=== PATIENT | female | born 1940 | race Caucasian/White ===

== ENCOUNTER 2017-04-02 19:31 | Emergency (ER) | payer MEDICARE, OTHER ==
[2017-04-02 20:51] VITALS: BP 184/89
--- NOTE | 2017-04-02 21:04 | EDM.PDOC ---
ED HPI GENERAL MEDICAL PROBLEM - General Chief Complaint: General Stated Complaint: ELEVATED BLOOD PRESSURE Time Seen by Provider: 04/02/17 20:30 Source of Information: Reports: Patient History Limitations: Reports: No Limitations - History of Present Illness INITIAL COMMENTS - FREE TEXT/NARRATIVE: 76-year-old female usually very healthy who has chronic essential hypertension and in the clinic a few days ago with a nosebleed and was found to be hypertensive. She was told to follow her blood pressure and then recheck with her primary provider next week but today she checked it in the top number was still over 200 so she came in. She feels fine. She is under a lot of stress. She has no shortness of breath or chest pain. No significant headaches. Onset: Unknown/Unsure - Related Data Allergies Allergy/AdvReac Type Severity Reaction Status Date / Time fish oil Allergy Severe Anaphylactic Verified 04/02/17 20:07 Shock shellfish derived Allergy Severe Anaphylactic Verified 04/02/17 20:07 Shock povidone-iodine Allergy Rash Verified 04/02/17 20:07 [From Betadine] soap [From Betadine] Allergy Rash Verified 04/02/17 20:07 Sulfa (Sulfonamide Allergy Rash Verified 04/02/17 20:07 Antibiotics) Home Meds: Home Meds Hydrochlorothiazide 25 mg PO DAILY 12/11/12 [History] Losartan [Cozaar] 100 mg PO DAILY 12/11/12 [History] Montelukast [Singulair] 10 mg PO DAILY 12/11/12 [History] Simvastatin [Zocor] 20 mg PO BEDTIME 12/11/12 [History] Potassium Chloride 20 meq PO DAILY 01/22/14 [History] Aspirin [Adult Low Dose Aspirin EC] 81 mg PO DAILY 08/28/14 [History] EPINEPHrine [Epinephrine] 0.3 ml IM ASDIRECTED PRN 08/28/14 [History] Albuterol Sulfate [Proair Hfa] 1 - 2 puff INH ASDIRECTED PRN 12/07/15 [History] Brimonidine [Alphagan P 0.15% Ophth Soln] 1 drop EYEBOTH BID 01/05/16 [History] Past Medical History HEENT History: Reports: Cataract, Hard of Hearing, Impaired Vision Cardiovascular History: Reports: High Cholesterol, Hypertension Respiratory History: Reports: Asthma Gastrointestinal History: Reports: Colon Polyp 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 Psychiatric History: Reports: Depression - Infectious Disease History Infectious Disease History: Reports: Chicken Pox - Past Surgical History HEENT Surgical History: Reports: Cataract Surgery Respiratory Surgical History: Reports: None Female Surgical History: Reports: None Neurological Surgical History: Reports: Spinal Fusion, Other (See Below) Musculoskeletal Surgical History: Reports: Knee Replacement, Shoulder Surgery Social & Family History - Family History Family Medical History: Noncontributory - Tobacco Use Smoking Status *Q: Never Smoker Second Hand Smoke Exposure: No - Caffeine Use Caffeine Use: Reports: Tea - Alcohol Use Days Per Week of Alcohol Use: 0 - Recreational Drug Use Recreational Drug Use: No ED ROS GENERAL - Review of Systems Review Of Systems: See Below Constitutional: Denies: Fever Respiratory: Denies: Shortness of Breath Cardiovascular: Denies: Chest Pain Neurological: Reports: Dizziness (Mild intermittent dizziness, chronic) ED EXAM, GENERAL - Physical Exam Exam: See Below Exam Limited By: No Limitations General Appearance: Alert, No Apparent Distress Respiratory/Chest: No Respiratory Distress, Lungs Clear Cardiovascular: Regular Rate, Rhythm Extremities: Normal Inspection. No: Pedal Edema Neurological: Alert, Oriented Course - Vital Signs Last Recorded V/S: Last Vital Signs Temp 97.3 F 04/02/17 20:50 Pulse 84 04/02/17 20:50 Resp 14 04/02/17 20:50 BP 184/89 H 04/02/17 20:50 Pulse Ox 98 04/02/17 20:50 - Re-Assessments/Exams Free Text/Narrative Re-Assessment/Exam: 04/02/17 21:01 Initial blood pressure was 189/100, recheck after a half hour was 179/89. She is on 100 mg of losartan daily, I did not feel comfortable increasing that and I think she is stable enough to talk to Dr. Phillips next week about whether another medication is needed. She can return sooner if she develops symptoms such as shortness of breath or chest pain. I strongly reinforced avoiding extra sodium. Departure - Departure Time of Disposition: 21:31 Disposition: Home, Self-Care 01 Condition: Good Clinical Impression: Hypertension Qualifiers: Hypertension type: essential hypertension Qualified Code(s): I10 - Essential ( primary) hypertension - Discharge Information Instructions: Hypertension, [id number] Referrals: Ian Phillips MD [Primary Care Provider] - Forms: ED Department Discharge Care Plan Goals: Avoid any extra salt and continue your regular medications. Call the clinic tomorrow to make an appointment with Dr. Phillips to discuss whether more indication is needed. Return anytime if worsening such as chest pain or shortness of breath.
== END 2017-04-02 21:31 | disposition home or self-care (01) ==
LOC: JP.ED 19:31
DX: I10 Essential (primary) hypertension (principal); Z88.8 Allergy status to other drugs, medicaments and biological substances; Z88.2 Allergy status to sulfonamides; Z91.013 Allergy to seafood; Z79.899 Other long term (current) drug therapy; E78.00 Pure hypercholesterolemia, unspecified; Z79.82 Long term (current) use of aspirin
CPT/HCPCS: 99283

== ENCOUNTER 2018-12-31 05:53 | Day surgery (SDC) | payer MEDICARE, OTHER ==
[2018-12-31] MEDS ORDERED: Lactated Ringers 1,000 ML IV SCH (06:30)
[2018-12-31] MEDS ORDERED: ceFAZolin 2 GM in Premix Bag 1 BAG IV ONE (06:30)
[2018-12-31] MEDS ORDERED: Nozin Nasal Sanitizer NASBOTH ONE (06:30)
[2018-12-31] MEDS ORDERED: Bupivacaine 0.5% 50 ML MDV ONE (07:03)
[2018-12-31] MEDS ORDERED: fentaNYL 100 MCG/2 ML SDV ONE (07:26)
[2018-12-31] MEDS ORDERED: Midazolam 1 MG/ML 2 ML SDV ONE (07:26)
[2018-12-31] MEDS ORDERED: Propofol 200 MG/20 ML SDV ONE ×2 (07:26→08:53)
[2018-12-31] MEDS ORDERED: Bupivacaine 0.5% 30 ML SDV ONE (07:28)
[2018-12-31] MEDS ORDERED: Acetaminophen/HYDROcodone 325-5 MG Tab PO ONE (10:44)
[2018-12-31 12:30] VITALS: BP 133/64; PULSE 67
--- NOTE | 2019-01-04 15:23 | OR ---
DATE OF PROCEDURE: 12/31/2018 SURGEON: Renan Ruano MD PREOPERATIVE DIAGNOSIS: Large retracted rotator cuff tear, right shoulder. POSTOPERATIVE DIAGNOSES: 1. Large retracted rotator cuff tear, right shoulder. 2. Degenerative superior labral tear. 3. Impingement of right shoulder. PROCEDURE: Arthroscopy of right shoulder with debridement of labrum, subacromial decompression, and arthroscopic rotator cuff repair. ANESTHESIA: Interscalene block with sedation. INDICATIONS: Lora is a very pleasant 78-year-old female with a history of pain and weakness in her right shoulder. Examination and MRI imaging consistent with a large retracted tear of the rotator cuff. She now presents for arthroscopy, decompression, and attempted rotator cuff repair. Risks, benefits, potential complications of the procedure were discussed. DESCRIPTION OF PROCEDURE: After adequate anesthesia was obtained, the patient was placed in a lateral decubitus position and secured with the beanbag positioner. The right shoulder and arm were then prepped and draped in a sterile fashion and 10 pounds of traction was placed in the shoulder traction unit. A standard posterior portal was established. Glenohumeral joint was inspected. This revealed no significant arthritic change of the humeral head or glenoid articular cartilage. Fraying of the superior labrum was present at the attachment of the biceps tendon. Biceps tendinopathy is noted. Tendinopathy, interstitial tearing of the subscapularis was noted but was intact. Full-thickness tear of the rotator cuff ws noted. Anterior portals established. Shaver was introduced and the superior labrum was mildly debrided. Scope then withdrawn and placed in the subacromial space. Significant impingement was present with fraying of the coracoacromial ligament. Retracted tear of the cuff was noted with retraction of approximately a centimeter and a half. A lateral portal was established. The bursa was resected for better visualization and the undersurface of the acromion was cleared of soft tissue with the radiofrequency ablation wand. The coracoacromial ligament was released. Acromioplasty was then performed using a annalise removing the undersurface of the anterolateral aspect of the acromion and bevelling this posteriorly removing just over 4 mm. The rotator cuff was then assessed. Reasonable tendon integrity was still present. The cuff was initially somewhat tight and could only be mobilized approximately 0.5 cm. An elevator was then used to release the cuff allowing mobilization out to the footprint without significant tension. The edge of the tendon was debrided with the shaver and the superior surface of the tuberosity was then lightly decorticated with a bur. Two Mitek Healix anchors were placed in the footprint. Beginning posteriorly, both limbs of one of the suture sets was placed through the cuff tendon using the Mitek Expressew device. This was then repeated for the second set of sutures. One set of the anterior anchor pair of sutures was then placed through the tendon in a mattress fashion. This left just a small area at the very anterior aspect of the tear and the last suture set was divided with one of the limbs passed through the tendon in order to tie this down in a simple repair fashion. Beginning with the anterior sutures, these were then tied down in standard arthroscopic fashion. The most anterior pair was cut. After tying the remaining 3 pairs, the cuff showed very good position over the tuberosity. The remaining anterior set and one of the posterior set of sutures was then selected for a knotless anchor for a suture bridge. The remaining set from the posterior anchor were cut. The socket was created just off the lateral edge of the acromion with an awl. All 4 limbs of the remaining sutures were passed through the knotless anchor. This was then secured into the bone with very good purchase and good tension on the sutures. This resulted in a secure cuff repair with the suture bridge double row technique. Repair and acromioplasty were then evaluated from the lateral portal. No complications were noted. Scope was withdrawn. Shoulder was drained and the port sites were closed in a standard fashion. Steri-Strips were applied. Sterile dressing was then placed. Patient was taken from the operating room in a stable condition. There were no complications. Renan Ruano MD /[id number]
== END 2018-12-31 12:43 | disposition home or self-care (01) ==
LOC: JP.SDS 05:53
PROVIDERS: ATTEND Specialist
DX: M75.121 Complete rotator cuff tear or rupture of right shoulder, not specified as traumatic (principal); S43.431A Superior glenoid labrum lesion of right shoulder, initial encounter; M25.811 Other specified joint disorders, right shoulder; E78.5 Hyperlipidemia, unspecified; I10 Essential (primary) hypertension; J45.30 Mild persistent asthma, uncomplicated; Z91.013 Allergy to seafood; Z88.2 Allergy status to sulfonamides; Z79.899 Other long term (current) drug therapy; Z79.82 Long term (current) use of aspirin; Z88.8 Allergy status to other drugs, medicaments and biological substances
CPT/HCPCS: 29822; 29826; 29827; A9270; C1713; J0690; J2250; J2704; J3010; J3490; J7120

== ENCOUNTER 2019-10-10 18:25 | Emergency (ER) | payer MEDICARE, OTHER ==
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
[2019-10-10 21:32] VITALS: BP 160/74; PULSE 80
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
== END 2019-10-10 22:09 | disposition home or self-care (01) ==
LOC: JP.ED 18:25
DX: S16.1XXA Strain of muscle, fascia and tendon at neck level, initial encounter (principal); S29.012A Strain of muscle and tendon of back wall of thorax, initial encounter; E78.00 Pure hypercholesterolemia, unspecified; I10 Essential (primary) hypertension; J45.909 Unspecified asthma, uncomplicated; Z79.899 Other long term (current) drug therapy; M19.90 Unspecified osteoarthritis, unspecified site; Z79.82 Long term (current) use of aspirin; V43.62XA Car passenger injured in collision with other type car in traffic accident, initial encounter
CPT/HCPCS: 71101-26-RT; 71101-RT; 72125; 99285-25

== ENCOUNTER 2022-12-18 12:55 | Emergency (ER) | payer MEDICARE, OTHER ==
[2022-12-18 13:07] VITALS: BP 157/72; PULSE 97
== END 2022-12-18 14:33 | disposition home or self-care (01) ==
LOC: JP.ED 12:55
DX: Z20.822 Contact with and (suspected) exposure to COVID-19 (principal); E78.00 Pure hypercholesterolemia, unspecified; I10 Essential (primary) hypertension; J45.909 Unspecified asthma, uncomplicated; M19.90 Unspecified osteoarthritis, unspecified site; Z79.82 Long term (current) use of aspirin; Z79.899 Other long term (current) drug therapy; Z88.2 Allergy status to sulfonamides; Z91.013 Allergy to seafood; Z88.8 Allergy status to other drugs, medicaments and biological substances
CPT/HCPCS: 99283; U0002; 99282

== ENCOUNTER 2024-03-30 17:32 | Emergency (ER) | payer MEDICARE, OTHER ==
[2024-03-30] MEDS ORDERED: Sodium Chloride 0.9% 10 ML Syringe FLUSH PRN (18:41)
[2024-03-30 18:55] LABS: BASOPHILS ABSOLUTE AUTO 0.04 K/uL (0.00-0.10); BASOPHILS PERCENT AUTO 0.6 % (0.1-1.3); EOSINOPHILS ABSOLUTE AUTO 0.08 K/uL (0.00-0.40); EOSINOPHILS PERCENT AUTO 1.2 % (0.0-5.4); HEMATOCRIT 40.9 % (34.3-46.0); HEMOGLOBIN 14.8 g/dL (11.2-15.5); IMMATURE GRAN PERCENT AUTO 0.3 % (0.0-0.7); LYMPHOCYTES ABSOLUTE AUTO 1.02 K/uL (0.8-3.3); LYMPHOCYTES PERCENT AUTO 15.1 % (11.4-47.7); MEAN CORPUSCULAR HEMOGLOBIN 30.8 pg (31.6-35.5); MEAN CORPUSCULAR HGB CONC 36.2 g/dL (31.6-35.5); MEAN CORPUSCULAR VOLUME 85.2 fL (81.4-99.0); MONOCYTES ABSOLUTE AUTO 0.66 K/uL (0.20-0.90); MONOCYTES PERCENT AUTO 9.8 % (3.3-12.6); NEUTROPHILS ABSOLUTE AUTO 4.94 K/uL (1.0-7.6); PLATELET COUNT,PLT 345 K/uL (130-375); WHITE BLOOD CELL COUNT,WBC 6.8 K/uL (3.2-11.0)
[2024-03-30 18:56] LABS: IMMATURE GRAN ABSOLUTE AUTO 0.02 K/uL (0.00-0.23)
[2024-03-30] MEDS: Lactated Ringers 1,000 ML IV ONE (18:57)
[2024-03-30 19:10] LABS: CALCIUM 9.1 mg/dL (8.5-10.1); CREATININE 0.7 mg/dL (0.6-1.0); EST CRCL DRUG DOSING (CG) 42.2 mL/min
[2024-03-30 19:22] VITALS: BP 131/98; PULSE 101
[2024-03-30] MEDS: Potassium Chloride 10 MEQ in Premix Bag 1 BAG IV ONE (20:15)
== END 2024-03-30 21:20 | disposition home or self-care (01) ==
LOC: JP.ED 17:32
DX: R19.7 Diarrhea, unspecified (principal); I10 Essential (primary) hypertension; E78.00 Pure hypercholesterolemia, unspecified; J45.909 Unspecified asthma, uncomplicated; M19.90 Unspecified osteoarthritis, unspecified site; Z96.659 Presence of unspecified artificial knee joint; Z88.8 Allergy status to other drugs, medicaments and biological substances; Z88.2 Allergy status to sulfonamides; Z91.018 Allergy to other foods; Z91.013 Allergy to seafood; Z91.048 Other nonmedicinal substance allergy status; Z79.82 Long term (current) use of aspirin; Z79.51 Long term (current) use of inhaled steroids; Z79.899 Other long term (current) drug therapy
CPT/HCPCS: 36415; 80048; 85025; 96361; 96365; 99283; 99284-25; J3480; J7120

== ENCOUNTER 2025-01-26 13:31 | Emergency (ER) | payer MEDICARE, OTHER ==
[2025-01-26] MEDS ORDERED: Iopamidol 755 Mg/ML 100 ML Bottle IV SCH (14:15)
[2025-01-26 14:37] LABS: BASOPHILS ABSOLUTE AUTO 0.04 K/uL (0.00-0.10); BASOPHILS PERCENT AUTO 0.5 % (0.1-1.3); EOSINOPHILS ABSOLUTE AUTO 0.05 K/uL (0.00-0.40); EOSINOPHILS PERCENT AUTO 0.7 % (0.0-5.4); IMMATURE GRAN PERCENT AUTO 0.3 % (0.0-0.7); LYMPHOCYTES ABSOLUTE AUTO 1.05 K/uL (0.8-3.3); LYMPHOCYTES PERCENT AUTO 14.1 % (11.4-47.7); MONOCYTES ABSOLUTE AUTO 0.55 K/uL (0.20-0.90); MONOCYTES PERCENT AUTO 7.4 % (3.3-12.6); NEUTROPHILS ABSOLUTE AUTO 5.76 K/uL (1.0-7.6); NEUTROPHILS PERCENT AUTO 77.0 % (40.0-78.1); PLATELET COUNT,PLT 291 K/uL (130-375); RED BLOOD CELL COUNT 4.89 M/uL (3.77-5.24); WHITE BLOOD CELL COUNT,WBC 7.5 K/uL (3.2-11.0)
[2025-01-26 14:40] LABS: IMMATURE GRAN ABSOLUTE AUTO 0.02 K/uL (0.00-0.23)
[2025-01-26] MEDS: Ondansetron 4 MG/2 ML SDV IVPUSH ONE (14:57)
[2025-01-26] MEDS: diphenhydrAMINE 50 MG/ML SDV IVPUSH ONE (14:57)
[2025-01-26] MEDS: methylPREDNISolone Sodium Succinate 40 MG/1 ML SDV IVPUSH ONE (14:57)
[2025-01-26 15:04] LABS: A/G RATIO 1.2 (1.2-2.2); ALANINE AMINOTRANSFERASE,ALT 62 U/L (12-78); ASPARTATE AMNIOTRANSFERASE,AST 38 U/L (15-37); BILIRUBIN TOTAL 0.5 mg/dL (0.2-1.0); BLOOD UREA NITROGEN,BUN 15 mg/dL (7-18); CARBON DIOXIDE,CO2 26 mmol/L (21-32); CHLORIDE,CL 101 mmol/L (100-108); CREATININE 0.6 mg/dL (0.6-1.0); EST CRCL DRUG DOSING (CG) 48.34 mL/min; ESTIMATED GFR 87 mL/min (>60); GLUCOSE RANDOM 129 mg/dL (74-106); POTASSIUM,K 3.1 mmol/L (3.6-5.2); PROTEIN TOTAL,TP 7.6 g/dL (6.4-8.2); SODIUM,NA 139 mmol/L (140-148); TROPONIN I HIGH SENSITIVITY 9.4 pg/mL (<=60.3)
[2025-01-26] MEDS: Iopamidol 755 Mg/ML 100 ML Bottle IV SCH (15:21)
[2025-01-26] MEDS: Sodium Chloride 0.9% 10 ML Syringe FLUSH ONE (15:21)
[2025-01-26 17:14] VITALS: BP 164/61; PULSE 69
== END 2025-01-26 17:40 | disposition home or self-care (01) ==
LOC: JP.ED 13:31
DX: R42 Dizziness and giddiness (principal); I10 Essential (primary) hypertension; E78.00 Pure hypercholesterolemia, unspecified; J45.909 Unspecified asthma, uncomplicated; M19.90 Unspecified osteoarthritis, unspecified site; Z79.899 Other long term (current) drug therapy; Z91.030 Bee allergy status; Z88.2 Allergy status to sulfonamides
CPT/HCPCS: 36415; 70450; 70496; 70498; 80053; 83605; 84484; 85025; 93005; 96374; 96375; 99284; A9270; J1200; J2405; J7030; Q9967; J2919